=== PATIENT | male | born 2000 | race African-American/Black ===

== ENCOUNTER 2021-07-18 11:04 | Emergency (ER) | payer SELFPAY ==
[~2021-07-18] VITALS: Ht 167.6 cm; Wt 100.1 kg
[2021-07-18 11:11] VITALS: BP 141/75
== END 2021-07-18 13:47 | disposition left against medical advice (07) ==
LOC: M ED 11:04
DX: Z53.21 Procedure and treatment not carried out due to patient leaving prior to being seen by health care provider (principal)

== ENCOUNTER → 2022-08-22 | Outpatient (CLI) | payer OTHER | LOC: M RAD 06:02 | PROVIDERS: ATTEND Student in an Organized Health Care Education/Training Program | DX: M67.432 Ganglion, left wrist (principal) ==